=== PATIENT | female | born 1980 | race Caucasian/White ===

== ENCOUNTER → 2019-03-11 | Outpatient (CLI) | payer BC ==
--- NOTE | 2019-03-11 17:26 | MAM ---
EXAM DESCRIPTION: 3D Diagnostic, Bilateral (accession [id number]), Breast,Right (accession [id number]): Ultrasound CLINICAL HISTORY: 38 yearsFemaleLUMP IN RIGHT BREAST mastitis 15 years ago. Now palpable and firm feeling of right breast in the upper outer quadrant. Mother with breast cancer, age 58. Premenopausal. No HRT Lifetime risk of developing breast cancer (Tyrer-Cuzick model)(%): Not calculated COMPARISON: None. TECHNIQUE: Bilateral LM, MLO, and CC projection full-field images, digital mammographic tomosynthesis technique. Bilateral 2-D digital full-field MLO images. Digital magnification images of the upper outer quadrant of the right breast in the CC and LM projections. CAD not utilized. . Transcutaneous scanning of the right breast utilizing regan-scale and Doppler modes. Scanning performed by the transfer and pumphouse operator and Dr. Guerrero. FINDINGS: The breast parenchymal density pattern is: Heterogeneously dense breast tissue, which may obscure small masses. No nipple retraction . A skin marker is visualized on the upper outer quadrant of the middle third of the right breast. At this location on the cc view, a smooth mass is partially visualized which appears to be protruding from the denser fibroglandular tissues. At the 10:30 clock position of the posterior third of the right breast is a partially lobulated and partially irregular border mass density slightly more dense within these surrounding fibroglandular tissues on the CC tomosynthesis right breast image. On the CC and LM tomosynthesis images, and the 2-D MLO image, irregular grouped microcalcifications are seen in the base and medial aspect of this density. Minimal skin thickening is noted superior and lateral to this mass density on the tomosynthesis images.. No focal, stellate mass or density, focal asymmetry , and no suspicious microcalcifications left breast. Ultrasound: Scanning of the upper outer quadrant of the right breast. Tissue is mostly fibroglandular and fibrocystic with minimal fatty echotexture. At the 11:00 position 2 cm from the nipple is a round to oval shaped hypoechoic mass with mostly circumscribed margins, measuring 2.7 x 3.0 x 2.7 cm. Wider than tall orientation. No vascularity. Edge shadowing but mostly posterior acoustic enhancement. At the 11:00 position 4 cm from the nipple is a round to oval anechoic structure with thin alatorre measuring 1.2 x 1.2 cm. Wider than tall orientation, posterior acoustic enhancement, and nonvascular. At the 11:00 position, 6 cm from the nipple is a hypoechoic solid mass with some borders lobulated and some borders are irregular. Heterogeneous internal echoes and minimal vascularity. Wider than tall orientation with predominantly posterior acoustic shadowing. Dimensions are 3.2 x 2.4 x 1.5 cm. This mass appears to extend to the previously described cyst 4 cm from the nipple. At the 7:00 position 6 cm from the nipple are a cluster of small cysts with circumscribed margins, predominantly anechoic, no vascularity, and wider than tall orientation. Posterior acoustic shadowing. Dimensions are 1.3 cm x 0.9 x 0.7 cm. No dominant solid mass or large calcifications. IMPRESSION: Irregular solid mass suspicious for malignancy. Multiple cysts. ASSESSMENT: BI-RADS Category 4: SUSPICIOUS - Subcategory 4B: Moderate Suspicion For Malignancy. RECOMMENDATION: Tissue diagnosis is recommended if there are no clinical contraindications. The FINDINGS and follow up were discussed in person with the patient following the examination. Written communication explaining the IMPRESSION and follow-up, will be mailed to the patient and referring health care provider. CRITICAL COMMUNICATION: The critical value was discussed directly by phone with DESHAUN Sung, associate of Dr. Johana Valdes, at approximately 1650 hours, on March 11, 2019. Electronically signed by: Adonay Guerrero MD 03/11/2019 5:24 PM CDT
== END ==
LOC: MAMMO 15:03
PROVIDERS: ATTEND Family Medicine
DX: N63.13 Unspecified lump in the right breast, lower outer quadrant (principal)
CPT/HCPCS: 76641; 77066; G0279

== ENCOUNTER → 2019-03-26 | Outpatient (CLI) | payer BC ==
--- NOTE | 2019-03-26 10:12 | OP ---
DATE OF PROCEDURE: 03/26/19 PREOPERATIVE DIAGNOSIS: 1. Abnormal right mammogram. POSTOPERATIVE DIAGNOSIS: 1. Abnormal right mammogram. PROCEDURE: 1. Sonographically guided needle core biopsy, right breast mass. 2. Sonographically guided aspiration, right breast cyst times 2. SURGEON: Carmelo Webster MD. CRIMINOLOGY TEACHER: None. ANESTHESIA: Local infiltration of 1% lidocaine. INDICATION: The patient is a 38-year-old female who had developed a right breast mass over some period of time. Mammography revealed two cystic lesion in the upper outer quadrant of the right breast along with an irregularly-shaped solid mass. After risks, benefits and alternatives to sonographically guided biopsy were discussed and accepted, the patient was brought to the Ultrasound Suite this morning for the above-noted procedure. FINDINGS: Two cysts were drained separately. One obtained just over 1 cc of fluid, the other about 8 cc of fluid. Both were dark and blood-tinged. Four solid cores was made from the mass with the ultrasound noting the needle within the mass. PROCEDURE: After the patient was brought to the Ultrasound Suite and placed in the supine position, the right breast was examined with the ultrasound probe. The lesions were identified. The breast medial to the ultrasound probe was prepped with Betadine and draped. Local infiltration of anesthesia was obtained with 1% lidocaine and the tissue between the mass and the skin was infiltrated with local anesthesia. When this was done, a stab wound was then made with a 15 blade and then two separate 18-gauge needles were used to drain the two separate cysts under ultrasound guidance. When this was done four passes were made with the biopsy needle, taking excellent cores. There was some bleeding. Hemostasis was obtained with pressure. A single simple 4-0 Prolene suture was placed in the skin. The patient tolerated the procedure well. Estimated blood loss less than 10 cc. #[id number] MTDD
--- NOTE | 2019-03-26 16:00 | US ---
EXAM DESCRIPTION: Biopsy/Needle Guidance: Ultrasound. CLINICAL HISTORY: 38 years Female RIGHT BREAST MASS COMPARISON: Diagnostic ultrasound of the right breast breast on 03/11/2019. Bilateral diagnostic digital breast tomosynthesis on the same visit. TECHNIQUE: The procedure was performed by Dr. Webster. Repeat ultrasound localized the lesion at the 11:00 position of the right breast 6 cm from the nipple. Sterile preparation. Sterile ultrasound guidance during needle passes. FINDINGS: Multiple images show the echogenic needle traversing the hypoechoic and echogenic aspects of the mass. A cyst abutting the mass, also seen on the prior targeted ultrasound, was also aspirated. Solid smears and fluid cytology specimens. IMPRESSION: Successful, ultrasound-guided needle core biopsy of right breast mass. Adequate core samples were obtained. Pathology examination at remote facility, results pending. Electronically signed by: Adonay Guerrero MD 03/26/2019 3:58 PM CDT
== END ==
LOC: US 08:47
PROVIDERS: ATTEND Surgery
DX: C50.511 Malignant neoplasm of lower-outer quadrant of right female breast (principal)

== ENCOUNTER → 2019-04-07 | Outpatient (CLI) | payer BC ==
--- NOTE | 2019-04-07 13:51 | CT ---
EXAM DESCRIPTION: Abdomen/Pelvis w/wo Contrast: Computed Tomography. CLINICAL HISTORY: Malignant neoplasm of upper-outer quadrant of right female breast COMPARISON: CT scan of the chest without and with IV contrast. TECHNIQUE: Spiral-axial scans at 5 x 5 mm intervals through the abdomen and pelvis before and after Optiray 320 nonionic IV contrast. No oral contrast. Coronal and sagittal 2.0 mm reconstructions. 5 mm Delayed helical-axial scans, liver through the pubic symphysis. No adverse reactions. Total Exam DLP 1656.4 mGy - cm. This exam was performed according to our departmental CT dose-optimization program which includes automated exposure control, adjustment of the mA and/or kV according to patient size and/or use of iterative reconstruction technique; to reduce radiation dose to as low as reasonably achievable (ALARA). FINDINGS: Lung bases and pleura: Please see chest CT scan report today. Liver, Stomach, Spleen, Adrenal Glands: Negative. Pancreas, Gallbladder, Ducts: Unremarkable. Kidneys and Ureters: Negative. Mesentery: A ventral midline compartment containing fat extends from the inferior xiphoid process, anterior to the left lobe of the liver and between the rectus abdominal muscles to the umbilicus there is a minimal diaphysis. No bowel in this compartment. No fatty stranding, air, soft tissue mass, or fluid Aorta: Unremarkable. Small Bowel: Negative. Terminal Ileum/Cecum: Normal size. Elongated appendix normal diameter. No inflammatory changes or fluid. Colon: Moderate amount of fecal matter with no large air-fluid levels are significant distention. No pericolonic inflammatory changes. Pelvic Organs: 2.3 cm fluid density structure with no abnormal enhancement is most likely a right ovarian cyst. IUD customary position in the uterus which is not retroverted. Left ovary present with no fluid in the cul-de-sac. Spine and Bony Pelvis: No lytic or blastic lesions. Abdominal Wall/Back Soft Tissues: Mesenteric compartment as previously noted with diastasis at the umbilicus but not containing bowel. IMPRESSION: 1. No organ enlargement. No focal mass in the organs or in the mesentery, abdominal wall, or peritoneal cavity/retroperitoneum. 2. No Free fluid or free air, hernia, or inflammatory changes. 3. IUD in customary position in the uterus. 2.3 cm benign appearing right ovarian cyst. No follow-up imaging is recommended. Reference: J Am Stephen Radiol 2013;10:675-681. Electronically signed by: Adonay Guerrero MD 04/07/2019 1:50 PM CDT
--- NOTE | 2019-04-07 14:46 | CT ---
EXAM DESCRIPTION: Chest w/wo Contrast : Computed Tomography. CLINICAL HISTORY: 38 years Female Malignant neoplasm of upper-outer quadrant of right female breast COMPARISON: CT scan of the abdomen and pelvis without and with IV contrast. TECHNIQUE: Spiral-axial scans at 5 x 5 mm intervals through the lungs and thorax without and with IV contrast. 2.5 x 5 mm lung algorithm axial reconstructions. Coronal and sagittal 2.0 Mm reconstructions. No adverse reactions. Total Exam DLP: 434.51 mGy-cm. This exam was performed according to our departmental dose-optimization program which includes automated exposure control, adjustment of the mA and/or kV according to patient size and/or use of iterative reconstruction technique; to reduce radiation dose to as low as reasonably achievable (ALARA). Nodule measurements under 10 mm are given as mean value of 3 axes diameters. FINDINGS: Lungs and large airways: Negative. Pleural spaces: Unremarkable. Mediastinum and Nayana: Negative. Great vessels and Heart: Unremarkable. Soft tissues of neck base, axillae, and chest wall: An enhancing spiculated mass, with adjacent fatty stranding is visualized in the axillary tail of the upper-outer quadrant of the right breast with a more inferior 2 cm fluid collection with enhancing margins, and enhancing nodules inferior to the cystic tissue. A 2.3 x 1.7 x 1.4 cm variably enhancing right axillary node is visualized approximately 5 cm from the breast mass, with slightly irregular margins and minimal surrounding fatty stranding. Other lymph nodes in the axilla are normal size with normal nonreactive appearance of left axillary lymph nodes.. Upper abdomen: See abdominal pelvic CT scanner report. Osseous structures: Irregular sclerotic region is noted on the inferior, left of midline body of the sternum superior to the xiphoid process. Measuring almost 1 cm diameter. No other lytic or blastic lesions.. Minimal upper thoracic levoscoliosis. IMPRESSION: 1. 2.3 x 1.7 cm irregular enhancing lymph node in the right axilla with a reactive appearance, and 5 cm from primary right breast malignancy previously biopsied. This could represent reaction to the biopsy, remote inflammatory/infectious process, or a sentinel node with metastatic disease. Consider follow-up tissue diagnosis. 2. Almost 1 cm sclerotic lesion in the inferior body of the sternum to the left of midline just above the xiphoid process. This could be chronic or posttraumatic or metastatic. Consider whole body radionuclide bone imaging. Electronically signed by: Adonay Guerrero MD 04/07/2019 2:44 PM CDT
== END ==
LOC: LAB.O 07:28
PROVIDERS: ATTEND Surgery
DX: C50.411 Malignant neoplasm of upper-outer quadrant of right female breast (principal); N83.201 Unspecified ovarian cyst, right side; Z97.5 Presence of (intrauterine) contraceptive device

== ENCOUNTER → 2019-04-09 | Outpatient (CLI) | payer BC ==
--- NOTE | 2019-04-09 18:59 | NM ---
EXAM DESCRIPTION: Bone Scan, Whole Body: Nuclear Medicine CLINICAL HISTORY: 38 years Female BREAST CA. Right. COMPARISON: CT scan of the chest abdomen and pelvis 04/07/2019. TECHNIQUE: Patient injected with 26.4 mCi of technetium 99M MDP IV. Delayed gamma camera images from anterior and posterior projections were obtained 3 hr after injection. FINDINGS: On the inferior anterior inferior aspect of the sternal body, there is a small focus of increased activity just above the manubrium. This can only be seen on the anterior views. This corresponds to a sclerotic region on the sternum seen on the CT scan of the chest. No other abnormal activity in the long bones or flat bones or skull. Normal soft tissue activity in the paranasal sinuses, breasts, kidneys, and urinary bladder. Activity and uptake in the bilateral joints is symmetric and unremarkable in the spine. IMPRESSION: Faint focal activity in the inferior left body of the sternum corresponds to sclerotic region on the sternum on CT scan of the chest. Differential includes bone island and osteoblastic process, such as metastasis. Consider whole body PET/CT hybrid scan for staging. The remainder of the examination is unremarkable. Electronically signed by: Adonay Guerrero MD 04/09/2019 6:58 PM CDT
== END ==
LOC: NM 09:30
PROVIDERS: ATTEND Surgery
DX: C50.411 Malignant neoplasm of upper-outer quadrant of right female breast (principal)

== ENCOUNTER 2019-04-17 05:32 | Day surgery (SDC) | payer BC ==
[2019-04-17] MEDS ORDERED: PROPOFOL 200 MG/20 ML VIAL IV ONE (10:00)
[2019-04-17] MEDS ORDERED: LIDOCAINE 1% 10 ML VIAL INJ ONE (10:00)
[2019-04-17] MEDS ORDERED: SODIUM CHLORIDE 0.9% 50 ML VIAL ONE (10:06)
[2019-04-17] MEDS ORDERED: SODIUM BICARBONATE VIAL 50 MEQ/50 ML VIAL ONE (10:06)
[2019-04-17] MEDS ORDERED: LIDOCAINE 1% 50 ML VIAL INJ ONE (10:06)
[2019-04-17] MEDS ORDERED: HEPARIN SODIUM 100 U/ML 5 ML SYG IV ONE (10:06)
[2019-04-17] MEDS ORDERED: ceFAZolin SODIUM 1 GM VIAL ONE (13:05)
[2019-04-17] MEDS ORDERED: SODIUM CHL 0.9% 100ML MINI-BAG 100 ML IVPB ONE (13:06)
[2019-04-17] MEDS ORDERED: LACTATED RINGERS 1,000 ML ONE (13:06)
[2019-04-17] MEDS ORDERED: fentaNYL CITRATE INJ 50 MCG/ML AMP ONE (14:11)
[2019-04-17] MEDS ORDERED: MIDAZOLAM INJ 5 MG/5 ML VIAL ONE (14:11)
[2019-04-17] MEDS ORDERED: KETAMINE HCL 50 MG/ML SYG IV ONE (14:12)
[2019-04-17] MEDS ORDERED: MIDAZOLAM INJ 2 MG/2 ML VIAL ONE (14:18)
--- NOTE | 2019-04-17 15:49 | RAD ---
EXAM DESCRIPTION: Chest,1 View CLINICAL HISTORY: s/p port placement COMPARISON: 07 April 2019 TECHNIQUE: AP portable chest FINDINGS: An Cuxvgy-p-Bejj catheter seen in place on the patient's left with the distal tip in the region of the junction of the innominate vein and superior vena cava. No pneumothorax is observed. The lungs are clear. The heart is within range of normal. IMPRESSION: An Musior-q-Uwyv catheter seen in the distal tip in the region of the junction of the innominate vein and superior vena cava. Electronically signed by: Raza Barron MD 04/17/2019 3:48 PM CDT
[2019-04-17 16:20] VITALS: BP 135/78; TEMP 97.8; O2SAT 100
--- NOTE | 2019-04-17 20:14 | OP ---
DATE OF PROCEDURE: 04/17/19 PREOPERATIVE DIAGNOSIS: 1. Carcinoma of the right breast. POSTOPERATIVE DIAGNOSIS: 1. Carcinoma of the right breast for neoadjuvant chemotherapy. SURGICAL PROCEDURE: 1. Insertion of left subclavian venous access port using fluoroscopy. SURGEON: Carmelo Webster M.D. FRAMING CARPENTER: None. ANESTHESIA: Local infiltration and IV sedation by Anesthesia. INDICATION FOR SURGERY: The patient is a 38 year-old female who presented to her primary care physician with a right breast mass. She underwent needle core biopsy and aspiration of 2 cysts, one of which revealed malignant cells, the other biopsy was done revealed an invasive carcinoma this ER OH and HER2 shweta positive. She has a locally advanced primary tumor. She has been seen by Dr. Franklin, her oncologist, and he is in agreement that she will receive neoadjuvant chemotherapy prior to treatment of the chest wall. She was brought to the Surgical Suite today for insertion of a port for the chemotherapy. FINDINGS AT TIME OF PROCEDURE: The left subclavian vein was identified on first stick and fluoroscopy revealed first the guidewire and then the catheter in good position in the superior vena cava. DESCRIPTION OF PROCEDURE: After the patient was brought to the Surgical Suite and placed in the supine position, she was prepped and draped in the usual manner along with sedation. A surgical time out was taken. Infiltration of anesthesia was made in the left infraclavicular area. A 22 gauge thin walled needle infiltrated local down to the clavicle and walked below it. It was advanced and venous blood was obtained. An 18 gauge thin walled needle was then introduced in the same direction through the same hole. Venous blood was obtained. The guide wire was introduced through the needle and the needle was removed. A towel was placed over the field and fluoroscopy was used to identify the catheter in the superior vena cava. At this point an incision was made over the guide wire with a #15 blade and then the port pocket was formed first with infiltration of anesthesia, then the sharp knife and then electrocautery. The port was checked for position in the port pocket and then the catheter was tunneled from the port pocket to the insertion site. When this was done the port was sutured in place with 2 simple Prolene sutures on each side of the anterior surface of the catheter. At this point the port was cut to appropriate length. The dilator introducer was introduced over the guide wire and the guide wire and dilator were removed. The catheter was first wiped with heparinized saline and then it was introduced through the introducer in the usual manner. The introducer was removed. The port was then accessed with a Castro needle and it was easily aspirated, and then flushed first with heparinized saline, then was hep locked and then de-accessed. At this point, again a towel was placed over the field and again fluoroscopy was used to identify the catheter in good position. At this point the port pocked and subcutaneous tissues was approximated with #3-0 Vicryl simple sutures and the skin edges were approximated with #4-0 Vicryl subcuticular stitch of Benzoin and Steri Strips. Sterile dressings were applied. The patient was awakened and taken to the Ambulatory Unit in stable condition. Estimated blood loss was less than 10 mL. All sponge, needle, and instrument counts were correct #[id number] MTDD
--- NOTE | 2019-05-06 08:57 | RAD ---
EXAM DESCRIPTION: Fluoroscopy Up to 1Hr CLINICAL HISTORY: 38 years Female, PORT PLACEMENT COMPARISON: Chest radiograph 04/17/2019 IMPRESSION: Multiple intraoperative fluoroscopic images saved for the benefit of the surgeon. Interval replacement versus repositioning of a port overlying the chest wall with its catheter crossing midline and directed right inferolaterally likely within the upper superior vena cava. Please see procedure report for full details. Fluoroscopy time: 7 seconds Fluoroscopic images: 1 Electronically signed by: Austyn New MD 05/06/2019 8:55 AM CDT
== END 2019-04-17 16:15 | disposition home or self-care (01) ==
LOC: AMB 05:32
PROVIDERS: ATTEND Surgery
DX: C50.911 Malignant neoplasm of unspecified site of right female breast (principal); F17.210 Nicotine dependence, cigarettes, uncomplicated; Z17.0 Estrogen receptor positive status [ER+]; Z79.899 Other long term (current) drug therapy
CPT/HCPCS: 00532; 36558; 71045; 76000; 81001; 81025; A4216; C1788; J0690; J1642; J2250; J3010; J3490; J7050; J7120